=== PATIENT | male | born 1955 | race Caucasian/White ===

== ENCOUNTER → 2018-04-21 | Outpatient (CLI) | payer BC ==
--- NOTE | 2018-04-21 14:58 | RAD ---
EXAM: Left lower extremity venous Doppler sonogram. HISTORY: Swelling. TECHNIQUE: Dawson scale and color Doppler sonographic evaluation of the left lower extremity veins with spectral waveform analysis was performed. FINDINGS: There is normal color flow, normal compressibility and there are normal spectral waveforms in the left lower extremity veins. There is a 5.3 x 3.9 x 2.5 cm left popliteal cyst. IMPRESSION: 1. No Doppler evidence of lower extremity venous thrombosis. 2. Left Guerrero's cyst measuring 5.3 cm. Electronically signed by: Linnea Serrano MD (04/21/2018 2:55 PM) [facility]
[2018-04-21 18:21] LABS: CALCIUM 8.9 mg/dL (8.5-10.1); CREATININE 1.1 mg/dL (0.7-1.3); GFR 68.1; POTASSIUM 4.3 mmol/L (3.5-5.1)
[2018-04-21 19:10] LABS: BASO % 1 % (0-3); EOS # 0.2 x10^3/uL (0.0-0.7); EOS % 2 % (0-3); HEMATOCRIT 41.9 % (39.0-53.0); HEMOGLOBIN 14.6 g/dL (13.0-17.5); LYMPH # 1.7 x10^3/uL (1.0-4.8); LYMPH % 21 % (24-48); MEAN CORPUSCULAR HEMOGLOBIN 32 pg (25-35); MEAN CORPUSCULAR HGB CONC 35 g/dL (31-37); MEAN CORPUSCULAR VOLUME 91 fL (79-100); MONO # 0.5 x10^3/uL (0.0-1.1); MONO % 6 % (0-9); NEUT # 5.7 x10^3uL (1.8-7.7); NEUT % 71 % (31-73); PLATELET COUNT 244 x10^3/uL (140-400); RED BLOOD COUNT 4.62 x10^6/uL (4.30-5.70); RED CELL DISTRIBUTION WIDTH 12.9 % (11.5-14.5); WHITE BLOOD COUNT 8.1 x10^3/uL (4.0-11.0)
[2018-04-23 03:10] LABS: HEMOGLOBIN A1C 7.5 % (4.8-5.6)
== END | disposition home or self-care (01) ==
LOC: LAB 13:29
PROVIDERS: ATTEND Family Medicine
DX: I82.442 Acute embolism and thrombosis of left tibial vein (principal); M71.22 Synovial cyst of popliteal space [Baker], left knee
CPT/HCPCS: 36415; 80048; 82553; 83036; 84484; 85025; 85610; 93971